=== PATIENT | female | born 1975 | race Caucasian/White ===

== ENCOUNTER → 2022-03-23 | Outpatient (CLI) | payer BC ==
--- NOTE | 2022-03-24 01:41 | XR ---
EXAMINATION TYPE: XR chest 2V DATE OF EXAM: 03/23/2022 COMPARISON: NONE HISTORY: SOB and chest pressure. History of COVID-19 3 months ago TECHNIQUE: Frontal and lateral views of the chest are obtained. FINDINGS: Questionable minimal reticulations of the lower lung zones versus artifacts. Minimal bilateral apical pulmonary fibrotic changes. Grossly unremarkable lungs otherwise. No sizable pleural effusion or pneumothorax. No cardiomegaly. D ouble scoliotic curvature of the thoracic spine. IMPRESSION: As above.
--- NOTE | 2022-03-24 01:44 | XR ---
EXAMINATION TYPE: XR lumbar spine 2 or 3V DATE OF EXAM: 03/23/2022 COMPARISON: None available INDICATION: Chronic low back pain radiating to the right leg TECHNIQUE: 3 views of the lumbar spine. FINDINGS: Preserved lumbar lordosis. No significant anterolisthesis or retrolisthesis. No definitive vertebral body collapse or acute displaced fracture. Degenerated L4-5 and L5-S1 discs. Questionable left L4-5 facet osteoarthropathy. Mild degenerative ch anges of the left sacroiliac joint. Fecal loading of the visualized portion of the colon. IMPRESSION: Degenerative changes as described above. Further MRI assessment can be considered if clinically requi red.
== END | disposition home or self-care (01) ==
LOC: RADXRMAIN 10:32
PROVIDERS: ATTEND Family Medicine
DX: M47.26 Other spondylosis with radiculopathy, lumbar region (principal); M41.84 Other forms of scoliosis, thoracic region; R06.02 Shortness of breath; R07.89 Other chest pain; Z86.16 Personal history of COVID-19
CPT/HCPCS: 71046; 72100